=== PATIENT | male | born 1965 | race Caucasian/White ===

== ENCOUNTER 2016-08-15 17:12 | Emergency (ER) | payer BC ==
[2016-08-15 17:41] VITALS: BP 138/70
--- NOTE | 2016-08-15 17:59 | UC ---
Back Pain HPI - HPI Summary HPI Summary: complaint of back pain that started 5 days ago pain is between his shoulder blades on the left side yesterday the pain was so severe that he was unable to do anything called and had a massage with some relief and as soon as he left it returned last night took aleve and tramadol without relief today went to see mortgage loan assistant and had some relief having muscle spasms denies any trauma or lifting before pain started constant aching pain that ebbs and flows starts under the left shoulder and radiates into his neck and left arm can't tell what movement makes in worse pulling his arm reduces the pain denies fever and chills, denies weight loss denies shortness of breath,chest pain, dizziness,nausea, palpitations - History of Current Complaint Chief Complaint: UCBackPain Stated Complaint: BACK PAIN Time Seen by Provider: 08/15/16 17:35 Hx Obtained From: Patient - Allergies/Home Medications Allergies/Adverse Reactions: Allergies Allergy/AdvReac Type Severity Reaction Status Date / Time No Known Allergies Allergy Verified 08/15/16 17:30 Home Medications: Home Medications Ibuprofen TAB* [Advil TAB*] 4 tab PO ONCE PRN 08/15/16 [History Confirmed ] Naproxen Sodium-Diphenhydramin [Aleve PM 220-25 mg] 6 tab PO ONCE PRN 08/15/16 [ History Confirmed 08/15/16] diPHENhydraMINE PO* [Benadryl PO 25 MG TAB*] 2 tab PO ONCE PRN 08/15/16 [ History Confirmed 08/15/16] traMADol TAB* [Ultram*] 1 tab PO TID PRN 08/15/16 [History Confirmed 08/15/16] PMH/Surg Hx/FS Hx/Imm Hx Previously Healthy: Yes Endocrine History Of: Denies: Diabetes, Thyroid Disease Cardiovascular History Of: Denies: Cardiac Disorders, Hypertension, Pacemaker/ICD Respiratory History Of: Denies: COPD, Asthma GI/ History Of: Denies: Ulcer - Surgical History Surgical History: None - Family History Known Family History: Negative: Cardiac Disease, Hypertension, Diabetes - Social History Occupation: Employed Full-time Lives: With Family Alcohol Use: Weekly Substance Use Type: Prescribed Substance Use Comment - Amount & Last Used: TRAMADOL - LAST NIGHT Smoking Status (MU): Never Smoked Tobacco Review of Systems Constitutional: Negative Skin: Negative Eyes: Negative ENT: Negative Respiratory: Negative Cardiovascular: Negative Gastrointestinal: Negative Genitourinary: Negative Motor: Negative Neurovascular: Negative Musculoskeletal: Other: - back [pain Neurological: Negative Psychological: Negative All Other Systems Reviewed And Are Negative: Yes Physical Exam Triage Information Reviewed: Yes Appearance: No Pain Distress, Well-Nourished Vital Signs: Initial Vital Signs Temp 97.9 F 08/15/16 17:31 Pulse 64 08/15/16 17:31 Resp 18 08/15/16 17:31 BP 138/70 08/15/16 17:31 Pulse Ox 98 08/15/16 17:31 Vital Signs Reviewed: Yes Eyes: Positive: Conjunctiva Clear ENT: Positive: Pharynx normal, TMs normal Neck: Positive: Supple Respiratory: Positive: Lungs clear, Normal breath sounds, No respiratory distress, No accessory muscle use Cardiovascular: Positive: RRR, No Murmur, Pulses Normal Abdomen Description: Positive: Nontender, Soft Bowel Sounds: Positive: Present Musculoskeletal: Positive: Other: - Spine have no noted deformities or signs of inflammation. Curvature of thoracic, and lumbar spine are within normal limits. Bony features of shoulders and hips are of equal height bilaterally. Posture is upright, and gait is smooth and normal. Spinous processes of T1-L5 palpable, midline, and non-tender; No step-offs. paraspinal tenderness bewtween left scalpula and spine Flexion, extension, and rotation of the remaining spinal column is within normal limits. Patient can flex forward and reach toes with minimal pain. Lateral bending causes no discomfort when bending to the right and left side. Neurological Exam: Normal Neurological: Positive: Other: - negative SLR Psychological Exam: Normal Skin Exam: Normal Back Pain Course/Dx - Course Course Of Treatment: exam completed. reproducible tenderness between scapula and spine. EKG - shows slight st elevation less than 1mm in the inferior lateral leads. discussed when to seek emergent care if he develops chest pain, shortness of breath, dizziness, nauseaor if pain worsens - Differential Dx/Diagnosis Differential Diagnosis/HQI/PQRI: Herniated Disc, Strain, Sprain, Other - cardiac etiology Provider Diagnoses: back pain - Physician Notifications Discussed Patient Care With: Dr Dooley Time Discussed With Above Provider: 18:38 Discharge - Discharge Plan Condition: Stable Disposition: HOME Prescriptions: Cyclobenzaprine TAB* [Flexeril 10 MG TAB*] 10 mg PO TID PRN #30 tab PRN Reason: Spasms - Muscle Ibuprofen TAB* [Motrin TAB* 800 MG] 800 mg PO Q6H #30 tab Patient Education Materials: Back Pain (ED) Referrals: Raleigh Bruce MD [Primary Care Provider] - Additional Instructions: Your blood pressure is pre-hypertensive reading. Please contact your primary care provider within 1 day -4 weeks for further evaluation. Start flexeril as directed. Do not drink alcohol or drive while taking flexeril. Please call physical therapy for further evaluation and treatment. Take ibuprofen for fever or pain. Increase fluids and rest. Please review your discharge instructions. If your symptoms do not improve please call your primary care provider or return to urgent care.
[2016-08-15] MEDS ORDERED: Cyclobenzaprine TAB* 10 MG PO ONE (18:42)
[2016-08-15] MEDS ORDERED: HYDROcodone/ACETAMIN 5-325 MG* 1 TAB PO ONE (18:43)
== END 2016-08-15 19:14 | disposition home or self-care (01) ==
LOC: UCEAST 17:12
DX: M54.9 Dorsalgia, unspecified (principal)
CPT/HCPCS: 93005; 99213; A9270-GY; G0463